=== PATIENT | male | born 1995 | race African-American/Black ===

== ENCOUNTER 2021-09-15 09:28 | Emergency (ER) | payer MEDICAID, OTHER ==
[~2021-09-15] VITALS: Ht 185.4 cm; Wt 65.8 kg
[2021-09-15 09:33] VITALS: BP 131/93
[2021-09-15] MEDS ORDERED: CEPH500C PO (10:22)
[2021-09-15] MEDS ORDERED: NAPR500T31 PO (10:22)
== END 2021-09-15 10:29 | disposition home or self-care (01) ==
LOC: ER 09:28
DX: L60.0 Ingrowing nail (principal); B35.1 Tinea unguium

== ENCOUNTER 2022-12-03 11:31 | Emergency (ER) | payer MEDICAID ==
[~2022-12-03] VITALS: Ht 182.9 cm; Wt 69.2 kg
[~2022-12-03 11:31] MED LIST: CEPH500C PO; NAPR-746 PO
[2022-12-03 11:43] VITALS: BP 119/88
[2022-12-03] MEDS ORDERED: HYDROcodone-ACET 10/325MG TAB PO ONE (14:15)
[2022-12-03] MEDS ORDERED: IBUP-1454 PO (14:27)
== END 2022-12-03 15:22 | disposition home or self-care (01) ==
LOC: ER 11:31
DX: S63.502A Unspecified sprain of left wrist, initial encounter (principal); M25.522 Pain in left elbow; Z79.899 Other long term (current) drug therapy; W01.0XXA Fall on same level from slipping, tripping and stumbling without subsequent striking against object, initial encounter; Y93.89 Activity, other specified; Y92.89 Other specified places as the place of occurrence of the external cause; Y99.8 Other external cause status
CPT/HCPCS: 29105; 29125; 73080; 73110

== ENCOUNTER 2023-07-14 09:22 | Emergency (ER) | payer MEDICAID, OTHER ==
[~2023-07-14] VITALS: Ht 182.9 cm; Wt 72.8 kg
[~2023-07-14 09:22] MED LIST changes: +IBUP-1454 PO
[2023-07-14 10:32] VITALS: BP 114/52; PULSE 58; RESP 18; TEMP 97.9; O2SAT 96
[2023-07-14] MEDS ORDERED: NABU-72 PO (12:42)
== END 2023-07-14 12:51 | disposition home or self-care (01) ==
LOC: ER 09:22
DX: M54.2 Cervicalgia (principal); M54.6 Pain in thoracic spine; M25.532 Pain in left wrist; V43.52XA Car driver injured in collision with other type car in traffic accident, initial encounter; Y93.89 Activity, other specified; Y92.488 Other paved roadways as the place of occurrence of the external cause; Y99.8 Other external cause status
CPT/HCPCS: 72040; 72070; 73110